=== PATIENT | male | born 1965 | race African-American/Black ===

== ENCOUNTER 2017-08-18 03:42 | Emergency (ER) | payer OTHER ==
[2017-08-18] MEDS ORDERED: SODIUM CHLORIDE 1,000 ML IV STA (04:06)
--- NOTE | 2017-08-18 04:06 | PDOC ---
History of Present Illness - General Stated Complaint: ABD PAIN,VOMITING Time Seen by Provider: 08/18/17 03:49 History Source: Patient Exam Limitations: No Limitations - History of Present Illness Travel History: No Initial Comments: 08/18/17 04:02 52-year-old male with no medical history presents to the emergency department complaining of epigastric abdominal pain. Pain is described as 5/10 sharp nonradiating intermittent discomfort and accompanied with chills and nausea. Patient denies any alleviating factors and is exacerbated on touch. Patient denies fever, headache, dizziness, lightheadedness, neck pains, back pains, chest pain, shortness of breath, urinary symptoms. Patient had 2 slices of pizza at ~1300hrs yesterday with a "Cup of noodle soup" Pain started at approximately 1800 hrs. last evening(x9h ago). Timing/Duration: reports: intermittent Quality: reports: moderate, sharpness Abdominal Pain Onset Location: reports: RUQ, epigastric Pain Radiation: reports: no radiation Past History - Past Medical History Allergies/Adverse Reactions: Allergies Allergy/AdvReac Type Severity Reaction Status Date / Time No Known Allergies Allergy Verified 08/18/17 04:02 Home Medications: Ambulatory Orders NK [No Known Home Medication] 08/18/17 Review of Systems - Review of Systems Able to Perform ROS?: Yes Comments:: 08/18/17 04:02 CONSTITUTIONAL: Absent: fever, chills, diaphoresis, generalized weakness, malaise, loss of appetite HEENT: Absent: rhinorrhea, nasal congestion, throat pain, throat swelling, difficulty swallowing, mouth swelling, ear pain, eye pain, visual Changes CARDIOVASCULAR: Absent: chest pain, loss of consciousness, palpitations, irregular heart rate, peripheral edema RESPIRATORY: Absent: cough, shortness of breath, dyspnea with exertion, orthopnea, wheezing, stridor, hemoptysis GASTROINTESTINAL: +Epigastric pain, +nausea Absent: abdominal distension, vomiting, diarrhea, constipation, melena, hematochezia GENITOURINARY: Absent: dysuria, frequency, urgency, hesitancy, hematuria, flank pain, genital pain MUSCULOSKELETAL: Absent: myalgia, arthralgia, joint swelling SKIN: Absent: rash, itching, pallor HEMATOLOGIC/IMMUNOLOGIC: Absent: easy bleeding, easy bruising, lymphadenopathy, frequent infections ENDOCRINE: Absent: unexplained weight gain, unexplained weight loss, heat intolerance, cold intolerance Is the patient limited Lithuanian proficient: No *Physical Exam - Physical Exam Comments: 08/18/17 04:02 GENERAL: Well developed, well nourished. Awake and alert. No acute distress. HEENT: Normocephalic, atraumatic. PERRLA, EOMI. No conjunctival pallor. Sclera are non- icteric. Moist mucous membranes. Oropharynx is clear. NECK: Supple. Full ROM. No JVD. Carotid pulses 2+ and symmetric, without bruits. No thyromegaly. No lymphadenopathy. CARDIOVASCULAR: Regular rate and rhythm. No murmurs, rubs, or gallops. Distal pulses are 2+ and symmetric. PULMONARY: No evidence of respiratory distress. Lungs clear to auscultation bilaterally. No wheezing, rales or rhonchi. ABDOMINAL: +RUQ pain on palp Soft. Non-distended. No rebound or guarding. No organomegaly. Normoactive bowel sounds. SKIN: Warm and dry. Normal capillary refill. No rashes. No jaundice. ED Treatment Course - LABORATORY CBC & Chemistry Diagram: 08/18/17 04:00 08/18/17 04:00 Progress Note - Progress Note Progress Note: Pt feels better after Maalox and pepcid 0627hrs: Pt feels better and wishes to be d/c *DC/Admit/Observation/Transfer Diagnosis at time of Disposition: Gastroenteritis - Discharge Dispostion Condition at time of disposition: Stable Admit: No - Referrals Referrals: Mark Moreno MD [Staff Physician] - - Patient Instructions Printed Discharge Instructions: DI for Viral Gastroenteritis -- Adult Additional Instructions: Avoid all the junk food/salty/cheesy food Increase fluid Follow up with the Charge Operator on the discharge form Return to the ER for severe/persistent/worsening symptoms - Post Discharge Activity
[2017-08-18 04:20] LABS: BASOPHIL 0.4 % (0-2.0); EOSINOPHIL 0.5 % (0-4.5); MCH 33.1 pg (25.7-33.7); MCHC 33.9 g/dl (32.0-35.9); MEAN CELL VOLUME 97.7 fl (80-96); MEAN PLT VOLUME 7.7 fl (7.5-11.1); NEUTROPHILS 84.7 % (42.8-82.8); PLATELET COUNT 277 K/MM3 (134-434); RDW 13.9 % (11.9-15.9); WHITE BLOOD COUNT 11.7 K/mm3 (4.0-10.0)
[2017-08-18] MEDS ORDERED: MAG HYDROX/AL HYDROX/SIMETH 355 ML ORAL.SUSP PO ONE (04:22)
[2017-08-18] MEDS ORDERED: FAMOTIDINE 20 MG/50 ML IVPB 20 MG/50 ML MG IVPB ONE ×2 (04:23→04:29)
[2017-08-18] MEDS ORDERED: LIDOCAINE VISCOUS 2% ORAL/TOP 20 ML UNIT-DOSE CUP MM ONE (04:24)
[2017-08-18] MEDS ORDERED: LIDOCAINE VISCOUS 2% ORAL/TOP 20 ML UNIT-DOSE CUP ONE (04:29)
[2017-08-18] MEDS ORDERED: MAG HYDROX/AL HYDROX/SIMETH 30 ML UNIT-DOSE CUP ONE (04:29)
[2017-08-18 04:42] VITALS: BP 114/83; PULSE 73; TEMP 97.5; BMI 27.3
[2017-08-18] MEDS ORDERED: ONDANSETRON 4 MG/2 ML VIAL ONE (04:42)
[2017-08-18 04:49] LABS: ALK PHOS 75 U/L (45-117); AMYLASE 102 U/L (25-115); ANION GAP 9 (8-16); BILIRUBIN,TOTAL 0.4 mg/dL (0.2-1.0); CALCIUM 9.2 mg/dL (8.5-10.1); CO2 29 mmol/L (21-32); CREATININE 1.2 mg/dL (0.7-1.3); GLUCOSE,RANDOM 144 mg/dL (74-106); SGOT/AST 15 U/L (15-37); SGPT/ALT 34 U/L (12-78); TOT PROT 8.2 g/dl (6.4-8.2)
[2017-08-18] MEDS ORDERED: ONDANSETRON 4 MG/2 ML VIAL IVPUSH ONE (04:54)
[2017-08-18] MEDS ORDERED: METOCLOPRAMIDE HCL INJECTION 10 MG/2 ML VIAL IVPUSH ONE (05:42)
[2017-08-18] MEDS ORDERED: METOCLOPRAMIDE HCL INJECTION 10 MG/2 ML VIAL ONE (06:05)
--- NOTE | 2017-08-18 15:04 | EKG ---
Test Reason : Blood Pressure : / mmHG Vent. Rate : 057 BPM Atrial Rate : 057 BPM P-R Int : 186 ms QRS Dur : 096 ms QT Int : 416 ms P-R-T Axes : 065 065 043 degrees QTc Int : 404 ms SINUS BRADYCARDIA WITH SINUS ARRHYTHMIA ATRIAL ABNORMALITY NONSPECIFIC T WAVE ABNORMALITY ABNORMAL ECG NO PREVIOUS ECGS AVAILABLE CLINICAL CORRELATION IS RECOMMENDED Confirmed by ELIE BARONE MD ([id number]) on 08/18/2017 3:03:37 PM Referred By: Confirmed By:ELIE BARONE MD
== END 2017-08-18 06:52 | disposition home or self-care (01) ==
LOC: JER 03:42
PROC: 3E0337Z Introduction of Electrolytic and Water Balance Substance into Peripheral Vein, Percutaneous Approach (ICD-10-PCS; principal; 2017-08-18)
PROC: 3E033GC Introduction of Other Therapeutic Substance into Peripheral Vein, Percutaneous Approach (ICD-10-PCS; 2017-08-18)
PROC: 3E033GC Introduction of Other Therapeutic Substance into Peripheral Vein, Percutaneous Approach (ICD-10-PCS; 2017-08-18)
PROC: 3E033GC Introduction of Other Therapeutic Substance into Peripheral Vein, Percutaneous Approach (ICD-10-PCS; 2017-08-18)
DX: K52.9 Noninfective gastroenteritis and colitis, unspecified (principal)
CPT/HCPCS: 36415; 80053; 82150; 83690; 85025; 93005; 93010; 99281-25

== ENCOUNTER 2018-03-02 21:13 | Emergency (ER) | payer OTHER ==
[2018-03-02 21:20] VITALS: BP 111/69; PULSE 73; TEMP 98.9; BMI 33.9
--- NOTE | 2018-03-02 21:51 | PDOC ---
History of Present Illness - General Chief Complaint: Injury Stated Complaint: FALL Time Seen by Provider: 03/02/18 21:42 History Source: Patient Exam Limitations: No Limitations - History of Present Illness Initial Comments: 03/02/18 21:47 52-year-old male without significant past medical history presents emergency Department with fifth digit pain of his left hand status post trip and fall. Patient states was walking out of his apartment 2 days ago when he tripped on some uneven pavement causing him to fall forward landing on his outstretched hand. He states he struck the distal tip of his finger first which subsequently pushed back into his hand. He reports over the past 2 days he has had increased pain and swelling. Patient denies any loss of sensation distal to the injury. Past History - Past Medical History Allergies/Adverse Reactions: Allergies Allergy/AdvReac Type Severity Reaction Status Date / Time No Known Allergies Allergy Verified 03/02/18 21:18 Home Medications: Ambulatory Orders NK [No Known Home Medication] 08/18/17 COPD: No - Suicide/Smoking/Psychosocial Hx Smoking History: Never smoked Have you smoked in the past 12 months: No Hx Alcohol Use: No Drug/Substance Use Hx: No Review of Systems - Review of Systems Able to Perform ROS?: Yes Is the patient limited Nauruan proficient: No Constitutional: No: Symptoms Reported HEENTM: No: Symptoms Reported Respiratory: No: Symptoms reported Cardiac (ROS): No: Symptoms Reported ABD/GI: No: Symptoms Reported : No: Symptoms Reported Musculoskeletal: Yes: See HPI Integumentary: No: Symptoms Reported Neurological: No: Symptoms reported *Physical Exam - Vital Signs Last Vital Signs Temp Pulse Resp BP Pulse Ox 98.9 F 73 18 111/69 98 03/02/18 21:19 03/02/18 21:19 03/02/18 21:19 03/02/18 21:19 03/02/18 21:19 - Physical Exam Extremity: positive: Normal Capillary Refill, Normal Range of Motion, Swelling ( Over PIP of the fifth digit on the left hand) ED Treatment Course - RADIOLOGY Radiology Studies Ordered: Category Date Time Status FINGER(S) LEFT [RAD] Stat Radiology 03/02/18 21:47 Ordered Medical Decision Making - Medical Decision Making 03/02/18 21:49 A/P: 52-year-old male with pain to the PIP on the fifth digit of the left hand status post trip and fall Swelling noted over the PIP of the fifth digit of the left hand Capillary refill is within normal limits Full sensation distal to swelling No bony deformity or crepitus noted X-ray fingers Discharge 03/02/18 22:31 X-rays read by me: Minimally displaced Transverse fracture of the proximal phalanx of the fifth digit on the left hand Nurse Practitioner made ulnar gutter splint applied. neurosensory intact status post application of splint. Patient given instructions to follow-up with Dr. Riley in one week for reevaluation. *DC/Admit/Observation/Transfer Diagnosis at time of Disposition: Proximal phalanx fracture of finger Qualifiers: Encounter type: initial encounter Finger: little finger Fracture type: closed Fracture alignment: nondisplaced Laterality: left Qualified Code(s): S62.647A - Nondisplaced fracture of proximal phalanx of left little finger, initial encounter for closed fracture - Discharge Dispostion Disposition: HOME Condition at time of disposition: Stable - Referrals Referrals: Cesar Villanueva MD [Primary Care Provider] - Jimbo Riley MD [Staff Physician] - - Patient Instructions Additional Instructions: Take Tylenol or Motrin as needed for pain. You've been given the number for Dr. Tao an orthopedic hand surgeon. Please call for evaluation in one week. Return to emergency department for numbness or tingling linear fingers, discoloration, worsening pain or any other concerns. Thank you very much for choosing provider emergent health care needs. - Post Discharge Activity
[2018-03-07] MEDS ORDERED: morphine CARPU-JECT 2 MG/1 ML DISP.SYRIN ONE (16:52)
== END 2018-03-02 22:41 | disposition home or self-care (01) ==
LOC: JERFT 21:13
PROC: 2W3DX1Z Immobilization of Left Lower Arm using Splint (ICD-10-PCS; principal; 2018-03-02)
DX: S62.647A Nondisplaced fracture of proximal phalanx of left little finger, initial encounter for closed fracture (principal); W01.0XXA Fall on same level from slipping, tripping and stumbling without subsequent striking against object, initial encounter; Y93.01 Activity, walking, marching and hiking; Y92.480 Sidewalk as the place of occurrence of the external cause; Y99.8 Other external cause status
CPT/HCPCS: 73140-TC-LT-FY; 99282-25

== ENCOUNTER 2019-10-05 18:26 | Emergency (ER) | payer OTHER ==
[2019-10-05 18:34] VITALS: BP 110/71; PULSE 65; TEMP 98; BMI 29.0
[2019-10-05] MEDS ORDERED: ACETAMINOPHEN 325 MG TABLET (FP) PO ONE (19:54)
--- NOTE | 2019-10-05 19:59 | PDOC ---
Attending Attestation - Resident Resident Name: Homero Jones - ED Attending Attestation I have performed the following: I have examined & evaluated the patient, The case was reviewed & discussed with the resident, I agree w/resident's findings & plan - HPI HPI: 10/05/19 19:56 see resident hpi - Physicial Exam PE: 10/05/19 19:56 agree with resident exam - Medical Decision Making 10/05/19 19:58 54-year-old male with syncopal episode and confusion now complaining of head and chin pain Plan for syncope work-up and admission to medical service for further evaluation CT scan, EKG and labs
--- NOTE | 2019-10-05 20:08 | PDOC ---
History of Present Illness - General Chief Complaint: Injury Stated Complaint: FALL Time Seen by Provider: 10/05/19 19:55 History Source: Patient, Significant Other - History of Present Illness Initial Comments: Mr. Beasley is a 54 y/o man with no relevant PMH p/w first time syncope 30 minutes prior to his arrival. He reports feeling normal throughout the day, and driving from from the grocery store. He reports parking in front of his house and stepping out of his car, when he woke up on the floor. He reports pain in the back of his head, as well as tasting blood on his tongue. He denies any seizure history, or history of prior syncopal episodes. He was found by his who called for EMS. He awoke approx 5 min later per the partner and was initially confused. He denies any confusion, weakness, vision changes, chest pain, shortness of breath, fatigue at this time. He reports having a PCP appointment tomorrow. Past History - Past Medical History Allergies/Adverse Reactions: Allergies Allergy/AdvReac Type Severity Reaction Status Date / Time No Known Allergies Allergy Verified 10/05/19 18:34 Home Medications: Ambulatory Orders NK [No Known Home Medication] 08/18/17 COPD: No - Psycho Social/Smoking Cessation Hx Smoking History: Former smoker Have you smoked in the past 12 months: No Information on smoking cessation initiated: No Hx Alcohol Use: No Drug/Substance Use Hx: No Review of Systems - Review of Systems Able to Perform ROS?: Yes Comments:: ROS: GENERAL/CONSTITUTIONAL: No fever or chills. No weakness. HEAD, EYES, EARS, NOSE AND THROAT: No change in vision. No ear pain or discharge. No sore throat. CARDIOVASCULAR: No chest pain or shortness of breath RESPIRATORY: No cough, wheezing, or hemoptysis. GASTROINTESTINAL: No nausea, vomiting, diarrhea or constipation. GENITOURINARY: No dysuria, frequency, or change in urination. MUSCULOSKELETAL: No joint or muscle swelling or pain. No neck or back pain. SKIN: No rash NEUROLOGIC: Syncope. No headache, vertigo, loss of consciousness, or change in strength/sensation. ENDOCRINE: No increased thirst. No abnormal weight change HEMATOLOGIC/LYMPHATIC: No anemia, easy bleeding, or history of blood clots. ALLERGIC/IMMUNOLOGIC: No hives or skin allergy. *Physical Exam - Vital Signs Last Vital Signs Temp Pulse Resp BP Pulse Ox 98 F 65 18 110/71 99 10/05/19 18:28 10/05/19 18:28 10/05/19 18:28 10/05/19 18:28 10/05/19 18:28 - Physical Exam 10/07/19 13:46 PE: GENERAL: Awake, alert, and fully oriented, in no acute distress HEAD: Small abrasion to back of scalp. No other signs of trauma, normocephalic, atraumatic EYES: PERRLA, EOMI, sclera anicteric, conjunctiva clear ENT: Auricles normal inspection, hearing grossly normal, nares patent, oropharynx clear without exudates. Moist mucosa NECK: Normal ROM, supple, no lymphadenopathy, JVD, or masses LUNGS: No distress, speaks full sentences, clear to auscultation bilaterally HEART: Regular rate and rhythm, normal S1 and S2, no murmurs, rubs or gallops, peripheral pulses normal and equal bilaterally. ABDOMEN: Soft, nontender, normoactive bowel sounds. No guarding, no rebound. No masses EXTREMITIES : Normal inspection, Normal range of motion, no edema. No clubbing or cyanosis NEUROLOGICAL: Cranial nerves II through XII grossly intact. Normal speech, normal gait, no focal sensorimotor deficits SKIN: Warm, Dry, normal turgor, no rashes or lesions noted Medical Decision Making - Medical Decision Making 54M w/no PMH p/w unwitnessed syncope while stepping out of his car with brief period of confusion on awakening, most consistent with first time seizure. Differential includes malignancy causing mass effect or seizure focus, ICH. Other differential includes ACS, metabolic derangement. Plan: CBC CMP Cardiac Profile EKG CXR CT Head CT cervical spine CT maxillofacial structures PT/INR PTT UA Urine culture Dispo: Admit --- Mr. Beasley refusing bloodwork, ekg, and admission, he would rather follow up with his physician tomorrow. Discussed our concerns and risks of not doing further workup. He is fully alert and oriented, is not intoxicated, and able to repeat back an understanding of our concerns and the risks. He will wait for the CT results. Plan for AMA pending radiology read of head CT. --- CTs negative for acute process. 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 Plan for AMA. Discharge - Discharge Information Problems reviewed: Yes Clinical Impression/Diagnosis: Syncope Qualifiers: Syncope type: unspecified Qualified Code(s): R55 - Syncope and collapse Condition: Guarded Disposition: AGAINST MEDICAL ADVICE - Admission No - Follow up/Referral Referrals: Cesar Villanueva MD [Primary Care Provider] - - Patient Discharge Instructions Patient Printed Discharge Instructions: DI for Syncope in Adults (Fainting) Additional Instructions: You were seen in the ER after fainting. We are recommending bloodwork and inpatient observation, as discussed. Please return to the ER if you change your mind and would like further evaluation. Please return if you develop worsening headache, repeat fainting, weakness, nausea, vomiting, chest pain, high fevers, trouble breathing. Please see your primary care provider as soon as possible, in the next 1-2 days. - Post Discharge Activity Work/Back to School Note: Back to Work
[2019-10-05] MEDS ORDERED: ACETAMINOPHEN 325 MG TABLET (FP) ONE (20:16)
== END 2019-10-05 21:40 | disposition left against medical advice (07) ==
LOC: JER 18:26
DX: R55 Syncope and collapse (principal); W18.39XA Other fall on same level, initial encounter; Y93.89 Activity, other specified; Y92.89 Other specified places as the place of occurrence of the external cause; Y99.8 Other external cause status
CPT/HCPCS: 70450-TC; 70486-TC; 72125-TC; 99283-25

== ENCOUNTER 2020-09-24 08:40 | Emergency (ER) | payer SELFPAY ==
[2020-09-24 08:47] VITALS: BMI 25.8
[2020-09-24] MEDS ORDERED: ONDANSETRON 4 MG/2 ML VIAL IVPUSH ONE ×2 (09:19→10:44)
[2020-09-24] MEDS ORDERED: ACETAMINOPHEN 1000 MG/100 ML VIAL (NON FORMULARY) IVPB ONE (09:19)
[2020-09-24] MEDS ORDERED: SODIUM CHLORIDE 1,000 ML IV STA ×2 (09:19→11:23)
[2020-09-24] MEDS ORDERED: FAMOTIDINE 20 MG/50 ML IVPB 20 MG/50 ML MG IVPB ONE ×2 (09:19→09:26)
[2020-09-24] MEDS ORDERED: ONDANSETRON 4 MG/2 ML VIAL ONE ×2 (09:26→10:50)
[2020-09-24] MEDS ORDERED: ACETAMINOPHEN INJECTION 100 ML IVPB ONE (09:26)
[2020-09-24] MEDS ORDERED: METOCLOPRAMIDE HCL INJECTION 10 MG/2 ML VIAL IVPB ONE (11:23)
[2020-09-24 11:26] VITALS: BP 155/81; PULSE 52; TEMP 20
[2020-09-24] MEDS ORDERED: METOCLOPRAMIDE HCL INJECTION 10 MG/2 ML VIAL ONE (11:44)
== END 2020-09-24 13:15 | disposition home or self-care (01) ==
LOC: JER 08:40
PROC: 3E033NZ Introduction of Analgesics, Hypnotics, Sedatives into Peripheral Vein, Percutaneous Approach (ICD-10-PCS; principal; 2020-09-24)
PROC: 3E033GC Introduction of Other Therapeutic Substance into Peripheral Vein, Percutaneous Approach (ICD-10-PCS; 2020-09-24)
PROC: 3E0337Z Introduction of Electrolytic and Water Balance Substance into Peripheral Vein, Percutaneous Approach (ICD-10-PCS; 2020-09-24)
DX: R10.13 Epigastric pain (principal); R11.2 Nausea with vomiting, unspecified
CPT/HCPCS: 99285-25; C9803; J0131; U0003

== ENCOUNTER 2020-09-26 10:47 | Emergency (ER) | payer SELFPAY ==
[2020-09-26 10:59] VITALS: TEMP 98; BMI 25.8
[2020-09-26] MEDS ORDERED: LACTATED RINGERS SOLUTION 1000 ML INFUS.BAG IV ONE (12:43)
[2020-09-26] MEDS ORDERED: ONDANSETRON 4 MG/2 ML VIAL IVPUSH ONE (12:44)
[2020-09-26] MEDS ORDERED: FAMOTIDINE 20 MG/50 ML IVPB 20 MG/50 ML MG IVPB ONE ×2 (12:44→13:08)
[2020-09-26] MEDS ORDERED: MAG HYDROX/AL HYDROX/SIMETH 30 ML UNIT-DOSE CUP PO ONE (13:04)
[2020-09-26] MEDS ORDERED: MAG HYDROX/AL HYDROX/SIMETH 30 ML UNIT-DOSE CUP ONE (13:08)
[2020-09-26] MEDS ORDERED: ONDANSETRON 4 MG/2 ML VIAL ONE (13:08)
[2020-09-26 13:50] LABS: CHLORIDE 106 mmol/L (98-107); SODIUM 140 mmol/L (136-145)
[2020-09-26 13:53] LABS: ALBUMIN 3.8 g/dl (3.4-5.0); ANION GAP 6 MMOL/L (8-16); BLOOD UREA NITROGEN 16.5 mg/dL (7-18); CO2 28 mmol/L (21-32); GLUCOSE,RANDOM 97 mg/dL (74-106)
[2020-09-26 13:53] LABS: COCAINE, UR NEGATIVE ng/ml (CUTOFF=300); URINE BARBITURATES NEGATIVE ng/ml (CUTOFF=200)
[2020-09-26 13:54] LABS: LIPASE 153 U/L (73-393)
[2020-09-26 13:56] LABS: CREATININE 1.1 mg/dL (0.55-1.3); SGOT/AST 64 U/L (15-37); SGPT/ALT 65 U/L (13-61)
[2020-09-26 13:57] LABS: METHADONE, UR NEGATIVE ng/ml (CUTOFF=300); OPIATES, URI NEGATIVE ng/ml (CUTOFF=300); PHENCYCLIDINE,URINE NEGATIVE ng/ml (CUTOFF=25); URINE AMPHETAMINES NEGATIVE ng/ml (CUTOFF=500); URINE BENZODIAZEPINES NEGATIVE ng/ml (CUTOFF=200)
[2020-09-26 13:58] LABS: BILIRUBIN,TOTAL 0.7 mg/dL (0.2-1); TOT PROT 7.5 g/dl (6.4-8.2)
[2020-09-26 13:59] LABS: ALK PHOS 47 U/L (45-117)
[2020-09-26] MEDS ORDERED: METOCLOPRAMIDE HCL INJECTION 10 MG/2 ML VIAL IVPB ONE (14:23)
[2020-09-26] MEDS ORDERED: METOCLOPRAMIDE HCL INJECTION 10 MG/2 ML VIAL ONE (14:29)
[2020-09-26 14:40] LABS: BASO % 1.2 % (0-2.0); EOS % 0.1 % (0-4.5); HEMATOCRIT 40.2 % (35.4-49); HEMOGLOBIN 13.1 GM/dL (11.7-16.9); LYMPH % 22.4 % (8-40); MCH 32.7 pg (25.7-33.7); MCHC 32.7 g/dl (32.0-35.9); MEAN CELL VOLUME 100.1 fl (80-96); MEAN PLT VOLUME 9.2 fl (7.5-11.1); NEUT % 68.3 % (42.8-82.8); PLATELET COUNT 180 K/MM3 (134-434); RBC 4.02 M/mm3 (4.00-5.60); RDW 14.2 % (11.9-15.9); WHITE BLOOD COUNT 9.3 K/mm3 (4.0-10.0)
[2020-09-26 16:14] VITALS: BP 110/68; PULSE 70
== END 2020-09-26 16:14 | disposition home or self-care (01) ==
LOC: JER 10:47
PROC: 3E033GC Introduction of Other Therapeutic Substance into Peripheral Vein, Percutaneous Approach (ICD-10-PCS; principal; 2020-09-26)
PROC: 3E033GC Introduction of Other Therapeutic Substance into Peripheral Vein, Percutaneous Approach (ICD-10-PCS; 2020-09-26)
PROC: 3E033GC Introduction of Other Therapeutic Substance into Peripheral Vein, Percutaneous Approach (ICD-10-PCS; 2020-09-26)
DX: R10.13 Epigastric pain (principal); R06.02 Shortness of breath; F50.2 Bulimia nervosa
CPT/HCPCS: 36415; 71045-TC-FY; 76705-TC; 80053; 80307; 82550; 82553; 83690; 84484; 85025; 93005; 93010; 99285-25

== ENCOUNTER 2021-04-04 09:59 | Emergency (ER) | payer OTHER ==
[2021-04-04 10:08] VITALS: BMI 26.6
[2021-04-04] MEDS ORDERED: ONDANSETRON 4 MG/2 ML VIAL IVPUSH ONE ×2 (11:24→13:16)
[2021-04-04] MEDS ORDERED: ONDANSETRON 4 MG/2 ML VIAL ONE ×2 (11:30→13:17)
[2021-04-04] MEDS ORDERED: FAMOTIDINE 20 MG/50 ML IVPB 20 MG/50 ML MG IVPB ONE ×2 (11:33→12:28)
[2021-04-04] MEDS ORDERED: ACETAMINOPHEN 1000 MG/100 ML VIAL (NON FORMULARY) IVPB ONE (11:33)
[2021-04-04] MEDS ORDERED: ACETAMINOPHEN INJECTION 100 ML IVPB ONE (11:35)
[2021-04-04] MEDS ORDERED: LACTATED RINGERS SOLUTION 1000 ML INFUS.BAG IV ONE (12:10)
[2021-04-04 12:18] LABS: BASO % 0.3 % (0-2.0); EOS % 0.2 % (0-4.5); HEMATOCRIT 43.2 % (35.4-49); HEMOGLOBIN 14.5 GM/dL (11.7-16.9); LYMPH % 11.1 % (8-40); MCH 33.2 pg (25.7-33.7); MCHC 33.6 g/dl (32.0-35.9); MEAN PLT VOLUME 9.2 fl (7.5-11.1); MONO % 2.7 % (3.8-10.2); NEUT % 85.7 % (42.8-82.8); PLATELET COUNT 202 10^3/uL (134-434); RBC 4.36 M/mm3 (4.00-5.60); RDW 14.7 % (11.9-15.9); WHITE BLOOD COUNT 10.2 K/mm3 (4.0-10.0)
[2021-04-04 12:27] LABS: INR 0.9 (0.83-1.09); PROTHROMBIN TIME (PATIENT) 10.9 SEC (9.7-13.0)
[2021-04-04 12:29] LABS: ACTIVATED PTT 27.6 SECONDS (25.2-36.5)
[2021-04-04 12:36] LABS: CHLORIDE 108 mmol/L (98-107); SODIUM 143 mmol/L (136-145)
[2021-04-04 12:40] LABS: ALBUMIN 4.2 g/dl (3.4-5.0); ANION GAP 7 MMOL/L (8-16); CALCIUM 9.6 mg/dL (8.5-10.1); CO2 27 mmol/L (21-32); LIPASE 172 U/L (73-393)
[2021-04-04 12:41] LABS: GLUCOSE,RANDOM 146 mg/dL (74-106)
[2021-04-04] MEDS ORDERED: MAG HYDROX/AL HYDROX/SIMETH 30 ML UNIT-DOSE CUP PO ONE (12:41)
[2021-04-04] MEDS ORDERED: MAG HYDROX/AL HYDROX/SIMETH 30 ML UNIT-DOSE CUP ONE (12:42)
[2021-04-04 12:43] LABS: CREATININE 1.2 mg/dL (0.55-1.3); SGOT/AST 24 U/L (15-37); SGPT/ALT 36 U/L (13-61)
[2021-04-04 12:45] LABS: BILIRUBIN,TOTAL 0.4 mg/dL (0.2-1); TOT PROT 7.8 g/dl (6.4-8.2)
[2021-04-04 12:46] LABS: ALK PHOS 63 U/L (45-117)
[2021-04-04] MEDS ORDERED: METOCLOPRAMIDE HCL INJECTION 10 MG/2 ML VIAL IVPUSH ONE (16:02)
[2021-04-04] MEDS ORDERED: SODIUM CHLORIDE 0.9% 500 ML INFUS.BAG IV ONE (16:02)
[2021-04-04] MEDS ORDERED: PANTOPRAZOLE SODIUM 40 MG VIAL IVPUSH ONE (16:03)
[2021-04-04] MEDS ORDERED: METOCLOPRAMIDE HCL INJECTION 10 MG/2 ML VIAL ONE (16:44)
[2021-04-04] MEDS ORDERED: PANTOPRAZOLE SODIUM 40 MG VIAL ONE (16:44)
[2021-04-04 19:04] VITALS: TEMP 98.4
[2021-04-11 16:55] VITALS: BP 138/80; PULSE 80
== END 2021-04-04 19:05 | disposition home or self-care (01) ==
LOC: JER 09:59
PROC: 3E0333Z Introduction of Anti-inflammatory into Peripheral Vein, Percutaneous Approach (ICD-10-PCS; principal; 2021-04-04)
PROC: 3E033GC Introduction of Other Therapeutic Substance into Peripheral Vein, Percutaneous Approach (ICD-10-PCS; 2021-04-04)
PROC: 3E033GC Introduction of Other Therapeutic Substance into Peripheral Vein, Percutaneous Approach (ICD-10-PCS; 2021-04-04)
PROC: 3E033GC Introduction of Other Therapeutic Substance into Peripheral Vein, Percutaneous Approach (ICD-10-PCS; 2021-04-04)
PROC: 3E033GC Introduction of Other Therapeutic Substance into Peripheral Vein, Percutaneous Approach (ICD-10-PCS; 2021-04-04)
PROC: 3E033GC Introduction of Other Therapeutic Substance into Peripheral Vein, Percutaneous Approach (ICD-10-PCS; 2021-04-04)
DX: R11.2 Nausea with vomiting, unspecified (principal)
CPT/HCPCS: 36415; 71046-TC-FY; 74177-TC; 80053; 83690; 84484; 85025; 85610; 85730; 93005; 93010; 99285-25; J0131; Q9967

== ENCOUNTER 2021-06-08 08:48 | Emergency (ER) | payer OTHER ==
[2021-06-08 09:00] VITALS: BMI 26.6
[2021-06-08] MEDS ORDERED: ONDANSETRON 4 MG/2 ML VIAL IVPUSH ONE (09:26)
[2021-06-08] MEDS ORDERED: SODIUM CHLORIDE 1,000 ML IV STA ×3 (09:26→11:01)
[2021-06-08] MEDS ORDERED: FAMOTIDINE 20 MG/50 ML IVPB 20 MG/50 ML MG IVPB ONE ×2 (09:26→09:55)
[2021-06-08] MEDS ORDERED: ONDANSETRON 4 MG/2 ML VIAL ONE (09:40)
[2021-06-08 10:09] LABS: BASO % 0.2 % (0-2.0); EOS % 0.5 % (0-4.5); HEMOGLOBIN 14.6 GM/dL (11.7-16.9); LYMPH % 12.5 % (8-40); MCH 34.2 pg (25.7-33.7); MCHC 34.7 g/dl (32.0-35.9); MEAN CELL VOLUME 98.7 fl (80-96); MONO % 3.1 % (3.8-10.2); NEUT % 83.7 % (42.8-82.8); PLATELET COUNT 201 10^3/uL (134-434); RBC 4.26 M/mm3 (4.00-5.60); RDW 14.7 % (11.9-15.9); WHITE BLOOD COUNT 9.8 K/mm3 (4.0-10.0)
[2021-06-08 10:35] LABS: ALBUMIN 3.8 g/dl (3.4-5.0); BLOOD UREA NITROGEN 17.9 mg/dL (7-18); MAGNESIUM 2.3 mg/dL (1.8-2.4)
[2021-06-08 10:38] LABS: CREATININE 1.4 mg/dL (0.55-1.3)
[2021-06-08 10:39] LABS: CALCIUM 9.4 mg/dL (8.5-10.1)
[2021-06-08 10:40] LABS: BILIRUBIN,TOTAL 0.4 mg/dL (0.2-1)
[2021-06-08 10:41] LABS: TOT PROT 7.3 g/dl (6.4-8.2)
[2021-06-08] MEDS ORDERED: METOCLOPRAMIDE HCL INJECTION 10 MG/2 ML VIAL ONE (10:59)
[2021-06-08] MEDS ORDERED: METOCLOPRAMIDE HCL INJECTION 10 MG/2 ML VIAL IVPB ONE (11:01)
[2021-06-08] MEDS ORDERED: ACETAMINOPHEN 1000 MG/100 ML VIAL (NON FORMULARY) IVPB ONE (11:02)
[2021-06-08] MEDS ORDERED: PANTOPRAZOLE SODIUM 40 MG VIAL IVPUSH ONE (11:02)
[2021-06-08] MEDS ORDERED: MAG HYDROX/AL HYDROX/SIMETH 30 ML UNIT-DOSE CUP PO ONE (11:02)
[2021-06-08] MEDS ORDERED: ACETAMINOPHEN INJECTION 100 ML IVPB ONE (11:38)
[2021-06-08] MEDS ORDERED: MAG HYDROX/AL HYDROX/SIMETH 30 ML UNIT-DOSE CUP ONE (11:38)
[2021-06-08] MEDS ORDERED: PANTOPRAZOLE SODIUM 40 MG VIAL ONE (11:39)
[2021-06-08] MEDS ORDERED: HALOPERIDOL LACTATE 5 MG/ML IV ONE (13:13)
[2021-06-08] MEDS ORDERED: ASPIRIN 325 MG ENTERIC COATED TABLET (FP) ONE (13:36)
[2021-06-08] MEDS ORDERED: HALOPERIDOL LACTATE 5 MG/ML ONE (13:55)
[2021-06-08 14:35] VITALS: BP 138/88; PULSE 60; TEMP 98
== END 2021-06-08 15:56 | disposition home or self-care (01) ==
LOC: JER 08:48
PROC: 3E0333Z Introduction of Anti-inflammatory into Peripheral Vein, Percutaneous Approach (ICD-10-PCS; principal; 2021-06-08)
PROC: 3E033GC Introduction of Other Therapeutic Substance into Peripheral Vein, Percutaneous Approach (ICD-10-PCS; 2021-06-08)
PROC: 3E033GC Introduction of Other Therapeutic Substance into Peripheral Vein, Percutaneous Approach (ICD-10-PCS; 2021-06-08)
PROC: 3E033GC Introduction of Other Therapeutic Substance into Peripheral Vein, Percutaneous Approach (ICD-10-PCS; 2021-06-08)
PROC: 3E033GC Introduction of Other Therapeutic Substance into Peripheral Vein, Percutaneous Approach (ICD-10-PCS; 2021-06-08)
PROC: 3E0337Z Introduction of Electrolytic and Water Balance Substance into Peripheral Vein, Percutaneous Approach (ICD-10-PCS; 2021-06-08)
PROC: 3E0337Z Introduction of Electrolytic and Water Balance Substance into Peripheral Vein, Percutaneous Approach (ICD-10-PCS; 2021-06-08)
DX: R11.10 Vomiting, unspecified (principal); R10.13 Epigastric pain; R19.7 Diarrhea, unspecified
CPT/HCPCS: 36415; 80053; 83690; 83735; 85025; 93005; 93010; 99284-25; J0131

== ENCOUNTER 2022-05-30 08:32 | Emergency (ER) | payer OTHER ==
[2022-05-30 08:37] VITALS: BP 132/87; RESP 18; TEMP 98.1; BMI 26.6
[2022-05-30] MEDS ORDERED: SODIUM CHLORIDE 1,000 ML IV ONE (08:54)
[2022-05-30] MEDS ORDERED: METOCLOPRAMIDE HCL INJECTION 10 MG/2 ML VIAL IVPB ONE (08:54)
[2022-05-30] MEDS ORDERED: ACETAMINOPHEN 1000 MG/100 ML BAG IVPB ONE (08:54)
[2022-05-30] MEDS ORDERED: METOCLOPRAMIDE HCL INJECTION 10 MG/2 ML VIAL ONE (09:01)
[2022-05-30] MEDS ORDERED: ACETAMINOPHEN INJECTION 100 ML IVPB ONE (09:02)
[2022-05-30 09:41] LABS: BASO % 0.9 % (0-2.0); EOS % 0.9 % (0-4.5); HEMATOCRIT 41.9 % (35.4-49); HEMOGLOBIN 14.1 GM/dL (11.7-16.9); LYMPH % 11.7 % (8-40); MCH 33.3 pg (25.7-33.7); MCHC 33.5 g/dl (32.0-35.9); MEAN CELL VOLUME 99.4 fl (80-96); MEAN PLT VOLUME 9.3 fl (7.5-11.1); MONO % 4.9 % (3.8-10.2); NEUT % 81.6 % (42.8-82.8); PLATELET COUNT 198 10^3/uL (134-434); RBC 4.22 M/mm3 (4.00-5.60); RDW 14.6 % (11.9-15.9); WHITE BLOOD COUNT 12.1 K/mm3 (4.0-10.0)
[2022-05-30 10:09] LABS: BLOOD UREA NITROGEN 15.4 mg/dL (7-18); CALCIUM 9.6 mg/dL (8.5-10.1); MAGNESIUM 2.4 mg/dL (1.8-2.4)
[2022-05-30 10:13] LABS: TOT PROT 7.2 g/dl (6.4-8.2)
[2022-05-30 10:14] LABS: BILIRUBIN,TOTAL 0.4 mg/dL (0.2-1)
[2022-05-30] MEDS ORDERED: MAG HYDROX/AL HYDROX/SIMETH 30 ML UNIT-DOSE CUP PO ONE (10:37)
[2022-05-30] MEDS ORDERED: ONDANSETRON 4 MG/2 ML VIAL IVPUSH ONE (10:37)
[2022-05-30] MEDS ORDERED: FAMOTIDINE 20 MG/50 ML IVPB 20 MG/50 ML MG IVPB ONE ×2 (10:37→10:41)
[2022-05-30] MEDS ORDERED: ONDANSETRON 4 MG/2 ML VIAL ONE (10:41)
[2022-05-30] MEDS ORDERED: MAG HYDROX/AL HYDROX/SIMETH 30 ML UNIT-DOSE CUP ONE (10:41)
[2022-05-30] MEDS ORDERED: HALOPERIDOL LACTATE 5 MG/ML IM ONE (12:01)
[2022-05-30] MEDS ORDERED: HALOPERIDOL LACTATE 5 MG/ML ONE (12:05)
[2022-05-30 14:02] VITALS: PULSE 70
== END 2022-05-30 14:02 ==
LOC: JER 08:32
PROC: 3E0333Z Introduction of Anti-inflammatory into Peripheral Vein, Percutaneous Approach (ICD-10-PCS; principal; 2022-05-30)
PROC: 3E033GC Introduction of Other Therapeutic Substance into Peripheral Vein, Percutaneous Approach (ICD-10-PCS; 2022-05-30)
PROC: 3E033GC Introduction of Other Therapeutic Substance into Peripheral Vein, Percutaneous Approach (ICD-10-PCS; 2022-05-30)
PROC: 3E033GC Introduction of Other Therapeutic Substance into Peripheral Vein, Percutaneous Approach (ICD-10-PCS; 2022-05-30)
PROC: 3E0337Z Introduction of Electrolytic and Water Balance Substance into Peripheral Vein, Percutaneous Approach (ICD-10-PCS; 2022-05-30)
PROC: 3E023GC Introduction of Other Therapeutic Substance into Muscle, Percutaneous Approach (ICD-10-PCS; 2022-05-30)
DX: F12.188 Cannabis abuse with other cannabis-induced disorder (principal); R10.13 Epigastric pain
CPT/HCPCS: 36415; 80053; 83690; 83735; 85025; 93005; 93010; 99284-25

== ENCOUNTER 2022-06-03 21:29 | Inpatient (IN) | payer OTHER ==
[2022-06-03 21:51] VITALS: BMI 26.6
[2022-06-04] MEDS ORDERED: morphine CARPU-JECT 4 MG/1 ML DISP.SYRIN IVPUSH ONE (03:13)
[2022-06-04] MEDS ORDERED: morphine SULFATE 4 MG/ML VIAL ONE (03:20)
[2022-06-04] MEDS ORDERED: ONDANSETRON 4 MG/2 ML VIAL ONE (03:52)
[2022-06-04] MEDS ORDERED: MIDAZOLAM HCL 2 MG/2 ML SINGLE DOSE VIAL ONE (03:53)
[2022-06-04] MEDS ORDERED: SUCCINYLCHOLINE CHLORIDE 200 MG/10 ML SYRINGE ONE (03:53)
[2022-06-04] MEDS ORDERED: PROPOFOL 40 ML ONE (03:53)
[2022-06-04 03:57] LABS: BASO % 0.7 % (0-2.0); EOS % 2.4 % (0-4.5); HEMATOCRIT 38.4 % (35.4-49); LYMPH % 22.7 % (8-40); MCH 34.2 pg (25.7-33.7); MCHC 33.9 g/dl (32.0-35.9); MEAN PLT VOLUME 8.9 fl (7.5-11.1); MONO % 10.1 % (3.8-10.2); NEUT % 64.1 % (42.8-82.8); PLATELET COUNT 202 10^3/uL (134-434); RDW 14.6 % (11.9-15.9); WHITE BLOOD COUNT 8.9 K/mm3 (4.0-10.0)
[2022-06-04 04:10] LABS: ALBUMIN 3.8 g/dl (3.4-5.0); BLOOD UREA NITROGEN 17.8 mg/dL (7-18); CALCIUM 8.7 mg/dL (8.5-10.1)
[2022-06-04 04:12] LABS: CREATININE 1.2 mg/dL (0.55-1.3)
[2022-06-04 04:15] LABS: BILIRUBIN,TOTAL 0.5 mg/dL (0.2-1); TOT PROT 7.3 g/dl (6.4-8.2)
[2022-06-04 04:23] LABS: INR 0.93 (0.83-1.09); PROTHROMBIN TIME (PATIENT) 10.7 SEC (9.7-13.0)
[2022-06-04] MEDS ORDERED: LIDOCAINE HCL 2% (20ML MULTI-DOSE VIAL) ONE (04:26)
[2022-06-04] MEDS ORDERED: ceFAZolin SODIUM 1 GM VIAL IVPB ONE (04:58)
[2022-06-04] MEDS ORDERED: PROPOFOL 20 ML ONE (05:51)
[2022-06-04] MEDS ORDERED: ONDANSETRON 4 MG/2 ML VIAL IVPUSH PRN (06:13)
[2022-06-04] MEDS ORDERED: ACETAMINOPHEN 1000 MG/100 ML BAG IVPB ONE ×4 (06:15→23:50)
[2022-06-04] MEDS ORDERED: LACTATED RINGERS SOLUTION 1,000 ML IV SCH (06:15)
[2022-06-04] MEDS ORDERED: oxyCODONE HCL 5 MG TABLET PO PRN (06:21)
[2022-06-04] MEDS ORDERED: ACETAMINOPHEN INJECTION 100 ML IVPB ONE (06:46)
[2022-06-04] MEDS: oxyCODONE HCL 5 MG TABLET PO PRN ×2 (11:20→21:05)
[2022-06-04] MEDS: CEFAZOLIN 1 GM in DEXTROSE 5%-WATER 100 ML IVPB SCH ×2 (15:07→22:21)
[2022-06-04] MEDS: DEXTROSE 5%-0.45% SALINE 1,000 ML IV SCH (21:04)
[2022-06-04 21:30] LABS: BASO % 0.1 % (0-2.0); EOS % 1.6 % (0-4.5); HEMOGLOBIN 12.6 GM/dL (11.7-16.9); MCH 34.2 pg (25.7-33.7); MCHC 34.1 g/dl (32.0-35.9); MEAN CELL VOLUME 100.3 fl (80-96); MEAN PLT VOLUME 8.2 fl (7.5-11.1); MONO % 7.4 % (3.8-10.2); NEUT % 76.9 % (42.8-82.8); PLATELET COUNT 191 10^3/uL (134-434); RBC 3.69 M/mm3 (4.00-5.60); RDW 14.5 % (11.9-15.9); WHITE BLOOD COUNT 8.4 K/mm3 (4.0-10.0)
[2022-06-04 21:51] LABS: ALBUMIN 3.3 g/dl (3.4-5.0)
[2022-06-04 21:57] LABS: BILIRUBIN,TOTAL 0.8 mg/dL (0.2-1); TOT PROT 6.2 g/dl (6.4-8.2)
[2022-06-04] MEDS: HEPARIN NA (PORCINE) 5,000 UNITS/ML 1ML VIAL SQ SCH (22:17)
[2022-06-05] MEDS: oxyCODONE HCL 5 MG TABLET PO PRN ×4 (03:24→21:46)
[2022-06-05] MEDS: CEFAZOLIN 1 GM in DEXTROSE 5%-WATER 100 ML IVPB SCH ×3 (05:52→21:44)
[2022-06-05] MEDS: HEPARIN NA (PORCINE) 5,000 UNITS/ML 1ML VIAL SQ SCH ×2 (09:19→21:15)
[2022-06-05 11:02] LABS: BASO % 0.4 % (0-2.0); EOS % 1.2 % (0-4.5); HEMATOCRIT 37.7 % (35.4-49); HEMOGLOBIN 12.5 GM/dL (11.7-16.9); LYMPH % 10.6 % (8-40); MCH 33.2 pg (25.7-33.7); MCHC 33.1 g/dl (32.0-35.9); MEAN CELL VOLUME 100.2 fl (80-96); MEAN PLT VOLUME 9.9 fl (7.5-11.1); MONO % 12.5 % (3.8-10.2); NEUT % 75.3 % (42.8-82.8); PLATELET COUNT 163 10^3/uL (134-434); RBC 3.76 M/mm3 (4.00-5.60); RDW 14.5 % (11.9-15.9); WHITE BLOOD COUNT 8.6 K/mm3 (4.0-10.0)
[2022-06-05 11:28] LABS: CALCIUM 8.9 mg/dL (8.5-10.1)
[2022-06-05 11:30] LABS: ALBUMIN 3.3 g/dl (3.4-5.0); BLOOD UREA NITROGEN 8.6 mg/dL (7-18)
[2022-06-05 11:34] LABS: BILIRUBIN,TOTAL 0.8 mg/dL (0.2-1); TOT PROT 6.5 g/dl (6.4-8.2)
[2022-06-05] MEDS: DEXTROSE 5%-0.45% SALINE 1,000 ML IV SCH ×2 (14:02→19:51)
[2022-06-06] MEDS: DEXTROSE 5%-0.45% SALINE 1,000 ML IV SCH (04:41)
[2022-06-06] MEDS: CEFAZOLIN 1 GM in DEXTROSE 5%-WATER 100 ML IVPB SCH ×2 (06:05→15:07)
[2022-06-06] MEDS: HEPARIN NA (PORCINE) 5,000 UNITS/ML 1ML VIAL SQ SCH (11:09)
[2022-06-06] MEDS: POLYETHYLENE GLYCOL (HEALTHYLAX) 3350 17 GM PACKET PO SCH ×3 (11:38→18:22)
[2022-06-06] MEDS ORDERED: DOCUSATE SODIUM 100 MG CAPSULE (FP) PO PRN (18:47)
[2022-06-06] MEDS: oxyCODONE HCL 5 MG TABLET PO PRN (20:41)
[2022-06-06] MEDS ORDERED: ACETAMINOPHEN 325 MG TABLET (FP) PO PRN (21:26)
[2022-06-07] MEDS: CEFAZOLIN 1 GM in DEXTROSE 5%-WATER 100 ML IVPB SCH ×4 (00:06→22:00)
[2022-06-07] MEDS ORDERED: ONDANSETRON 4 MG/2 ML VIAL IVPUSH PRN ×2 (08:46→10:47)
[2022-06-07] MEDS ORDERED: PROPOFOL 40 ML ONE (09:34)
[2022-06-07] MEDS ORDERED: SUCCINYLCHOLINE CHLORIDE 200 MG/10 ML SYRINGE ONE (09:35)
[2022-06-07] MEDS ORDERED: MIDAZOLAM HCL 2 MG/2 ML SINGLE DOSE VIAL ONE (09:35)
[2022-06-07] MEDS ORDERED: ROCURONIUM BROMIDE 50 MG/5 ML SYRINGE ONE (09:52)
[2022-06-07] MEDS ORDERED: ceFAZolin SODIUM 1 GM VIAL IVPB ONE (10:00)
[2022-06-07] MEDS: POLYETHYLENE GLYCOL (HEALTHYLAX) 3350 17 GM PACKET PO SCH (10:09)
[2022-06-07] MEDS ORDERED: ACETAMINOPHEN 325 MG TABLET (FP) PO PRN (10:47)
[2022-06-07] MEDS ORDERED: DOCUSATE SODIUM 100 MG CAPSULE (FP) PO PRN (10:47)
[2022-06-07] MEDS: oxyCODONE HCL 5 MG TABLET PO PRN ×2 (13:16→22:01)
[2022-06-07 21:37] VITALS: RESP 20
[2022-06-08] MEDS: HEPARIN NA (PORCINE) 5,000 UNITS/ML 1ML VIAL SQ SCH ×2 (00:35→09:23)
[2022-06-08] MEDS: CEFAZOLIN 1 GM in DEXTROSE 5%-WATER 100 ML IVPB SCH (05:46)
[2022-06-08] MEDS ORDERED: POLYETHYLENE GLYCOL (HEALTHYLAX) 3350 17 GM PACKET PO SCH (10:00)
[2022-06-08 10:19] LABS: EOS % 2.3 % (0-4.5); HEMATOCRIT 38.3 % (35.4-49); HEMOGLOBIN 12.6 GM/dL (11.7-16.9); LYMPH % 28.9 % (8-40); NEUT % 55.8 % (42.8-82.8); PLATELET COUNT 237 10^3/uL (134-434); RBC 3.83 M/mm3 (4.00-5.60); RDW 14.3 % (11.9-15.9)
[2022-06-08] MEDS: oxyCODONE HCL 5 MG TABLET PO PRN (11:11)
[2022-06-08 11:22] LABS: ALBUMIN 3.3 g/dl (3.4-5.0); BLOOD UREA NITROGEN 16.5 mg/dL (7-18)
[2022-06-08 11:27] LABS: TOT PROT 6.9 g/dl (6.4-8.2)
[2022-06-08 11:28] LABS: BILIRUBIN,TOTAL 0.8 mg/dL (0.2-1)
[2022-06-08 15:48] VITALS: BP 140/78; PULSE 78; TEMP 98.9
== END 2022-06-08 14:48 | disposition home or self-care (01) | DRG 317 ==
LOC: JER 21:29 → JASUSAT 06-04 03:17 → SUATTDRO 06-04 03:17 → J8W 06-04 03:18 → UNDOADMIN 06-04 03:18 → J8W 06-04 08:43 → JASUSAT 06-04 08:44 → J8W 06-04 09:45
PROVIDERS: ADMIT Orthopaedic Surgery; ATTEND Internal Medicine
PROC: 0J8 Subcutaneous Tissue and Fascia, Division (ICD-10-PCS; 2022-06-04)
PROC: 0JNG0ZZ Release Right Lower Arm Subcutaneous Tissue and Fascia, Open Approach (ICD-10-PCS; principal; 2022-06-04 03:50)
PROC: 0JCG0ZZ Extirpation of Matter from Right Lower Arm Subcutaneous Tissue and Fascia, Open Approach (ICD-10-PCS; 2022-06-07)
PROC: 0JRG07Z Replacement of Right Lower Arm Subcutaneous Tissue and Fascia with Autologous Tissue Substitute, Open Approach (ICD-10-PCS; 2022-06-07)
DX: T79.A11A Traumatic compartment syndrome of right upper extremity, initial encounter (principal); E87.0 Hyperosmolality and hypernatremia; V03.99XA Pedestrian with other conveyance injured in collision with car, pick-up truck or van, unspecified whether traffic or nontraffic accident, initial encounter; Y93.9 Activity, unspecified; Y92.488 Other paved roadways as the place of occurrence of the external cause; Y99.9 Unspecified external cause status; R50.9 Fever, unspecified; E87.5 Hyperkalemia; G56.01 Carpal tunnel syndrome, right upper limb
CPT/HCPCS: 36415; 73070-TC-RT-FY; 73090-TC-RT-FY; 73110-TC-RT-FY; 73130-TC-RT-FY; 80053; 85025; 85610; 87040; 87070; 87205; 88304-TC; 93005; 93010; 94760; 99285-25; C9803-CS; J1644; U0003; U0005

== ENCOUNTER 2022-06-25 10:05 | Emergency (ER) | payer OTHER ==
[2022-06-25 10:11] VITALS: BP 155/78; PULSE 53; RESP 18; TEMP 97.8; BMI 26.6
[2022-06-25] MEDS ORDERED: ACETAMINOPHEN 1000 MG/100 ML BAG IVPB ONE (11:38)
[2022-06-25] MEDS ORDERED: HALOPERIDOL LACTATE 5 MG/ML IM ONE (11:38)
[2022-06-25] MEDS ORDERED: LACTATED RINGERS SOLUTION 1000 ML INFUS.BAG IV ONE (11:38)
[2022-06-25] MEDS ORDERED: HALOPERIDOL LACTATE 5 MG/ML ONE (11:50)
[2022-06-25] MEDS ORDERED: ACETAMINOPHEN INJECTION 100 ML IVPB ONE (11:50)
[2022-06-25 12:26] LABS: BASO % 0.5 % (0-2.0); EOS % 0.5 % (0-4.5); HEMATOCRIT 43.4 % (35.4-49); HEMOGLOBIN 14.7 GM/dL (11.7-16.9); LYMPH % 12.1 % (8-40); MCH 33.9 pg (25.7-33.7); MCHC 33.7 g/dl (32.0-35.9); MEAN CELL VOLUME 100.5 fl (80-96); MEAN PLT VOLUME 9.1 fl (7.5-11.1); MONO % 2.6 % (3.8-10.2); NEUT % 84.3 % (42.8-82.8); PLATELET COUNT 298 10^3/uL (134-434); RBC 4.32 M/mm3 (4.00-5.60); RDW 15.1 % (11.9-15.9); WHITE BLOOD COUNT 10.9 K/mm3 (4.0-10.0)
[2022-06-25 12:33] LABS: INR 0.92 (0.83-1.09); PROTHROMBIN TIME (PATIENT) 10.6 SEC (9.7-13.0)
[2022-06-25 12:36] LABS: ACTIVATED PTT 27.9 SECONDS (25.2-36.5)
[2022-06-25 12:39] LABS: BLOOD UREA NITROGEN 13.5 mg/dL (7-18); CALCIUM 10.2 mg/dL (8.5-10.1)
[2022-06-25 12:40] LABS: ALBUMIN 4.2 g/dl (3.4-5.0)
[2022-06-25 12:44] LABS: BILIRUBIN,TOTAL 0.7 mg/dL (0.2-1); CREATININE 1.2 mg/dL (0.55-1.3); TOT PROT 8.4 g/dl (6.4-8.2)
[2022-06-25] MEDS ORDERED: ONDANSETRON 4 MG/2 ML VIAL IVPUSH ONE (13:31)
[2022-06-25] MEDS ORDERED: ONDANSETRON 4 MG/2 ML VIAL ONE (13:55)
== END 2022-06-25 16:24 | disposition home or self-care (01) ==
LOC: JER 10:05
PROC: 3E033NZ Introduction of Analgesics, Hypnotics, Sedatives into Peripheral Vein, Percutaneous Approach (ICD-10-PCS; principal; 2022-06-25)
PROC: 3E023NZ Introduction of Analgesics, Hypnotics, Sedatives into Muscle, Percutaneous Approach (ICD-10-PCS; 2022-06-25)
PROC: 3E033GC Introduction of Other Therapeutic Substance into Peripheral Vein, Percutaneous Approach (ICD-10-PCS; 2022-06-25)
DX: R11.10 Vomiting, unspecified (principal)
CPT/HCPCS: 36415; 80053; 83690; 85025; 85610; 85730; 86850; 86900; 86901; 93005; 93010; 99284-25

== ENCOUNTER 2022-08-01 04:27 | Day surgery (SDC) | payer OTHER ==
[2022-07-28 14:30] VITALS: BMI 28.1
[~2022-08-01 04:27] MED LIST: DEXAMETHASONE SOD PHOSPHATE 10 MG/1 ML VIAL IM ONE; IOHEXOL 180 MG/1 ML ML IJ ONE
[2022-08-01 08:01] VITALS: RESP 20
[2022-08-01] MEDS ORDERED: LIDOCAINE HCL 1% PRESERVATIVE FREE - 30ML VIAL IJ ONE (08:30)
[2022-08-01] MEDS ORDERED: IOHEXOL 180 MG/1 ML ML IJ ONE (08:32)
[2022-08-01] MEDS ORDERED: DEXAMETHASONE SOD PHOSPHATE 10 MG/1 ML VIAL IM ONE (08:36)
[2022-08-01 08:52] VITALS: BP 130/80; PULSE 60; TEMP 99.1
== END 2022-08-01 09:15 | disposition home or self-care (01) ==
LOC: JASU-SURG 04:27
PROVIDERS: ATTEND Pain Medicine Pain Medicine
PROC: 3E0R33Z Introduction of Anti-inflammatory into Spinal Canal, Percutaneous Approach (ICD-10-PCS; 2022-08-01)
PROC: 3E0R3BZ Introduction of Anesthetic Agent into Spinal Canal, Percutaneous Approach (ICD-10-PCS; principal; 2022-08-01 09:00)
DX: M54.16 Radiculopathy, lumbar region (principal)
CPT/HCPCS: 76000-TC-FY; J1100

== ENCOUNTER 2022-09-05 04:50 | Day surgery (SDC) | payer OTHER ==
[2022-09-05] MEDS ORDERED: LIDOCAINE HCL/PF 1% SDV 5ML VIAL ONE (07:19)
[2022-09-05] MEDS ORDERED: DEXAMETHASONE SOD PHOSPHATE 10 MG/1 ML VIAL ONE (07:19)
[2022-09-05] MEDS ORDERED: LIDOCAINE HCL 1% PRESERVATIVE FREE - 30ML VIAL IJ ONE ×2 (11:01)
[2022-09-05] MEDS ORDERED: IOHEXOL 180 MG/1 ML ML IJ ONE (11:01)
[2022-09-05] MEDS ORDERED: DEXAMETHASONE SOD PHOSPHATE 10 MG/1 ML VIAL IVPUSH ONE ×2 (11:02)
[2022-09-05 11:29] VITALS: BP 134/83; PULSE 54; RESP 18; TEMP 98.6
== END 2022-09-05 11:30 | disposition home or self-care (01) ==
LOC: JASU-SURG 04:50
PROVIDERS: ATTEND Pain Medicine Pain Medicine
PROC: 3E0R33Z Introduction of Anti-inflammatory into Spinal Canal, Percutaneous Approach (ICD-10-PCS; 2022-09-05)
PROC: 3E0R3BZ Introduction of Anesthetic Agent into Spinal Canal, Percutaneous Approach (ICD-10-PCS; principal; 2022-09-05 10:30)
DX: M54.16 Radiculopathy, lumbar region (principal)
CPT/HCPCS: 76000-TC-FY; J1100

== ENCOUNTER 2023-01-17 14:25 | Emergency (ER) | payer OTHER ==
[2023-01-17 14:47] VITALS: BP 117/70; PULSE 79; RESP 16; TEMP 98; BMI 28.1
[2023-01-17] MEDS ORDERED: KETOROLAC TROMETHAMINE 30 MG/1 ML VIAL IM ONE (16:29)
[2023-01-17] MEDS ORDERED: KETOROLAC TROMETHAMINE 30 MG/1 ML VIAL ONE (16:42)
== END 2023-01-17 18:07 | disposition home or self-care (01) ==
LOC: JER 14:25 → JERFT 14:25
PROC: 3E0233Z Introduction of Anti-inflammatory into Muscle, Percutaneous Approach (ICD-10-PCS; principal; 2023-01-17)
DX: S13.4XXA Sprain of ligaments of cervical spine, initial encounter (principal); M54.2 Cervicalgia; M54.6 Pain in thoracic spine; M25.511 Pain in right shoulder; M79.604 Pain in right leg; M79.605 Pain in left leg; V13.4XXA Pedal cycle driver injured in collision with car, pick-up truck or van in traffic accident, initial encounter
CPT/HCPCS: 72040-TC; 72100-TC-FY; 73030-TC-RT-FY; 73560-TC-LT-FY; 73560-TC-RT-FY; 73590-TC-LT-FY; 73590-TC-RT-FY; 99285-25

== ENCOUNTER 2023-01-30 04:03 | Day surgery (SDC) | payer OTHER ==
[2023-01-29 10:58] VITALS: BMI 28.1
[2023-01-30] MEDS ORDERED: DEXAMETHASONE SOD PHOSPHATE 10 MG/1 ML VIAL ONE ×2 (07:25→08:43)
[2023-01-30] MEDS ORDERED: LIDOCAINE HCL/PF 1% SDV 5ML VIAL ONE (07:25)
[2023-01-30] MEDS ORDERED: LIDOCAINE 1% P/F 10 MG/ML VIAL INF ONE ×2 (08:22)
[2023-01-30] MEDS ORDERED: IOHEXOL 180 MG/1 ML ML IJ ONE (08:22)
[2023-01-30] MEDS ORDERED: DEXAMETHASONE SOD PHOSPHATE 10 MG/1 ML VIAL IVPUSH ONE (08:23)
[2023-01-30 09:24] VITALS: BP 134/92; PULSE 55; RESP 16; TEMP 98.7
[2023-01-30] MEDS ORDERED: ACETAMINOPHEN 500 MG TABLET (FP) PO PRN (14:23)
== END 2023-01-30 08:55 | disposition home or self-care (01) ==
LOC: JASU-SURG 04:03
PROVIDERS: ATTEND Pain Medicine Pain Medicine
PROC: 3E0R3BZ Introduction of Anesthetic Agent into Spinal Canal, Percutaneous Approach (ICD-10-PCS; 2023-01-30)
PROC: 3E0R33Z Introduction of Anti-inflammatory into Spinal Canal, Percutaneous Approach (ICD-10-PCS; principal; 2023-01-30 08:00)
DX: M47.812 Spondylosis without myelopathy or radiculopathy, cervical region (principal)
CPT/HCPCS: 76000-TC-FY; J1100

== ENCOUNTER 2023-02-22 09:10 | Emergency (ER) | payer OTHER ==
[2023-02-22 09:18] VITALS: RESP 17; TEMP 98.7; BMI 27.3
[2023-02-22] MEDS ORDERED: FAMOTIDINE 20 MG/50 ML IVPB 20 MG/50 ML MG IVPB ONE ×2 (09:41→10:00)
[2023-02-22] MEDS ORDERED: LACTATED RINGERS SOLUTION 1000 ML INFUS.BAG IV ONE (09:41)
[2023-02-22] MEDS ORDERED: HALOPERIDOL DECANOATE 500 MG/5ML MDV IM ONE (09:44)
[2023-02-22] MEDS ORDERED: HALOPERIDOL LACTATE 5 MG/ML IM ONE (09:59)
[2023-02-22 10:42] LABS: POTASSIUM 5.3 mmol/L (3.5-5.1)
[2023-02-22 10:44] LABS: ALBUMIN 3.9 g/dl (3.4-5.0); CALCIUM 9.8 mg/dL (8.5-10.1)
[2023-02-22 10:45] LABS: BLOOD UREA NITROGEN 17.3 mg/dL (7-18); MAGNESIUM 2.1 mg/dL (1.8-2.4)
[2023-02-22 10:49] LABS: BILIRUBIN,TOTAL 0.7 mg/dL (0.2-1); TOT PROT 7.9 g/dl (6.4-8.2)
[2023-02-22] MEDS ORDERED: ACETAMINOPHEN 1000 MG/100 ML BAG IVPB ONE (11:41)
[2023-02-22] MEDS ORDERED: ACETAMINOPHEN INJECTION 100 ML IVPB ONE (11:48)
[2023-02-22 12:30] LABS: BASO % 0.4 % (0-2.0); EOS % 0.2 % (0-4.5); HEMATOCRIT 40.6 % (35.4-49); HEMOGLOBIN 13.8 GM/dL (11.7-16.9); LYMPH % 9.6 % (8-40); MCH 33.5 pg (25.7-33.7); MCHC 34.1 g/dl (32.0-35.9); MEAN CELL VOLUME 98.1 fl (80-96); MEAN PLT VOLUME 9.9 fl (7.5-11.1); MONO % 5.3 % (3.8-10.2); NEUT % 84.5 % (42.8-82.8); PLATELET COUNT 175 10^3/uL (134-434); RBC 4.14 M/mm3 (4.00-5.60); RDW 14.4 % (11.9-15.9); WHITE BLOOD COUNT 9.3 K/mm3 (4.0-10.0)
[2023-02-22] MEDS ORDERED: SODIUM CHLORIDE 0.9% 500 ML INFUS.BAG IV ONE (12:49)
[2023-02-22] MEDS ORDERED: ONDANSETRON 4 MG/2 ML VIAL IVPUSH ONE (12:49)
[2023-02-22 13:04] LABS: CALCIUM 9.2 mg/dL (8.5-10.1)
[2023-02-22] MEDS ORDERED: ONDANSETRON 4 MG/2 ML VIAL ONE (13:06)
[2023-02-22 13:08] LABS: CREATININE 0.9 mg/dL (0.55-1.3)
[2023-02-22 15:48] VITALS: BP 136/81; PULSE 78
== END 2023-02-22 15:50 | disposition home or self-care (01) ==
LOC: JER 09:10
PROC: 3E033GC Introduction of Other Therapeutic Substance into Peripheral Vein, Percutaneous Approach (ICD-10-PCS; principal; 2023-02-22)
PROC: 3E033GC Introduction of Other Therapeutic Substance into Peripheral Vein, Percutaneous Approach (ICD-10-PCS; 2023-02-22)
PROC: 3E033NZ Introduction of Analgesics, Hypnotics, Sedatives into Peripheral Vein, Percutaneous Approach (ICD-10-PCS; 2023-02-22)
PROC: 3E023GC Introduction of Other Therapeutic Substance into Muscle, Percutaneous Approach (ICD-10-PCS; 2023-02-22)
DX: R10.13 Epigastric pain (principal); F12.188 Cannabis abuse with other cannabis-induced disorder; R11.14 Bilious vomiting
CPT/HCPCS: 36415; 80048; 80053; 83690; 83735; 85025; 93005; 93010; 99284-25

== ENCOUNTER 2023-09-26 15:01 | Emergency (ER) | payer OTHER ==
[2023-09-26 15:17] VITALS: BP 129/77; PULSE 71; RESP 18; TEMP 98.7; BMI 28.1
[2023-09-26] MEDS ORDERED: MAG HYDROX/AL HYDROX/SIMETH 30 ML UNIT-DOSE CUP PO ONE (16:44)
[2023-09-26] MEDS ORDERED: FAMOTIDINE 20 MG/50 ML IVPB 20 MG/50 ML MG IVPB ONE ×2 (16:44→17:14)
[2023-09-26] MEDS ORDERED: SUCRALFATE 1 GM TABLET (FP) PO ONE (16:45)
[2023-09-26] MEDS ORDERED: SUCRALFATE 1 GM TABLET (FP) ONE (17:14)
[2023-09-26] MEDS ORDERED: MAG HYDROX/AL HYDROX/SIMETH 30 ML UNIT-DOSE CUP ONE (17:14)
[2023-09-26 17:36] LABS: BASO % 0.7 % (0-2.0); EOS % 3.8 % (0-4.5); HEMATOCRIT 40.6 % (35.4-49); HEMOGLOBIN 13.6 GM/dL (11.7-16.9); LYMPH % 39.3 % (8-40); MCH 33.2 pg (25.7-33.7); MCHC 33.5 g/dl (32.0-35.9); MEAN PLT VOLUME 7.8 fl (7.5-11.1); MONO % 8.1 % (3.8-10.2); NEUT % 48.1 % (42.8-82.8); PLATELET COUNT 229 10^3/uL (134-434); RDW 14.8 % (11.9-15.9); WHITE BLOOD COUNT 6.4 K/mm3 (4.0-10.0)
[2023-09-26] MEDS ORDERED: ACETAMINOPHEN 325 MG TABLET (FP) PO ONE (17:46)
[2023-09-26 18:04] LABS: ALBUMIN 3.6 g/dl (3.4-5.0); CALCIUM 9.3 mg/dL (8.5-10.1)
[2023-09-26 18:07] LABS: CREATININE 1.2 mg/dL (0.55-1.3)
[2023-09-26 18:09] LABS: BILIRUBIN,TOTAL 0.3 mg/dL (0.2-1); TOT PROT 7.4 g/dl (6.4-8.2)
== END 2023-09-26 18:37 | disposition home or self-care (01) ==
LOC: JER 15:01
PROC: 3E033GC Introduction of Other Therapeutic Substance into Peripheral Vein, Percutaneous Approach (ICD-10-PCS; principal; 2023-09-26)
DX: R07.89 Other chest pain (principal); K21.9 Gastro-esophageal reflux disease without esophagitis
CPT/HCPCS: 36415; 71046-TC-FY; 80053; 83690; 84484; 85025; 93005; 93010; 99285-25

== ENCOUNTER 2024-06-19 04:47 | Day surgery (SDC) | payer OTHER ==
[2024-06-16 14:44] VITALS: BMI 26.6
[2024-06-19] MEDS ORDERED: DEXAMETHASONE SOD PHOSPHATE 10 MG/1 ML VIAL ONE (07:48)
[2024-06-19] MEDS ORDERED: LIDOCAINE HCL/PF 2% SDV 5ML VIAL ONE (07:48)
[2024-06-19 11:51] VITALS: RESP 18
[2024-06-19] MEDS: LIDOCAINE HCL 1% PRESERVATIVE FREE - 30ML VIAL IJ ONE (12:31)
[2024-06-19] MEDS: DEXAMETHASONE SOD PHOSPHATE 20 MG/5 ML VIAL IM ONE (12:32)
[2024-06-19] MEDS: IOHEXOL 180 MG/1 ML ML IJ ONE (12:32)
[2024-06-19] MEDS ORDERED: ACETAMINOPHEN 500 MG TABLET (FP) PO PRN (13:01)
[2024-06-19 13:16] VITALS: BP 138/93; PULSE 60; TEMP 97.7
== END 2024-06-19 12:55 | disposition home or self-care (01) ==
LOC: JASU-SURG 04:47
PROVIDERS: ATTEND Pain Medicine Pain Medicine
PROC: 3E0R33Z Introduction of Anti-inflammatory into Spinal Canal, Percutaneous Approach (ICD-10-PCS; principal; 2024-06-19 12:30)
DX: M54.12 Radiculopathy, cervical region (principal)
CPT/HCPCS: 76000-TC-FY; J1100

== ENCOUNTER 2024-07-08 13:24 | Emergency (ER) | payer OTHER ==
[2024-07-08 13:46] VITALS: TEMP 97.6; BMI 27.2
[2024-07-08] MEDS: ONDANSETRON 4 MG/2 ML VIAL IVPUSH ONE (14:15)
[2024-07-08] MEDS: FAMOTIDINE 20 MG/50 ML IVPB 20 MG/50 ML MG IVPB ONE (14:20)
[2024-07-08] MEDS ORDERED: ONDANSETRON 4 MG/2 ML VIAL ONE (14:21)
[2024-07-08] MEDS ORDERED: ACETAMINOPHEN INJECTION 100 ML ONE (14:21)
[2024-07-08] MEDS ORDERED: MAG HYDROX/AL HYDROX/SIMETH 30 ML UNIT-DOSE CUP ONE (14:22)
[2024-07-08] MEDS ORDERED: FAMOTIDINE 10 MG/ML VIAL IVPB ONE (14:22)
[2024-07-08] MEDS: ACETAMINOPHEN 1000 MG/100 ML BAG IVPB ONE (14:56)
[2024-07-08] MEDS: SODIUM CHLORIDE 1,000 ML IV STA (14:56)
[2024-07-08] MEDS: MAG HYDROX/AL HYDROX/SIMETH 30 ML UNIT-DOSE CUP PO ONE (14:56)
[2024-07-08 15:02] LABS: BASO % 0.3 % (0-2.0); EOS % 2.5 % (0-4.5); HEMATOCRIT 41.4 % (35.4-49); LYMPH % 10.6 % (8-40); MCH 33.2 pg (25.7-33.7); MCHC 33.7 g/dl (32.0-35.9); MEAN CELL VOLUME 98.4 fl (80-96); MEAN PLT VOLUME 8.1 fl (7.5-11.1); MONO % 4.4 % (3.8-10.2); NEUT % 82.2 % (42.8-82.8); PLATELET COUNT 244 10^3/uL (134-434); RBC 4.21 M/mm3 (4.00-5.60); RDW 15.3 % (11.9-15.9); WHITE BLOOD COUNT 9.1 K/mm3 (4.0-10.0)
[2024-07-08 15:58] LABS: CHLORIDE 109 mmol/L (98-107); SODIUM 138 mmol/L (136-145)
[2024-07-08 16:00] LABS: CALCIUM 9.9 mg/dL (8.5-10.1)
[2024-07-08 16:01] LABS: ALBUMIN 3.9 g/dl (3.4-5.0); BLOOD UREA NITROGEN 16.4 mg/dL (7-18); CO2 22 mmol/L (21-32); GLUCOSE,RANDOM 111 mg/dL (74-106)
[2024-07-08 16:03] LABS: ANION GAP 6 mmol/L (4-13); POTASSIUM 6.3 mmol/L (3.5-5.1); SGPT/ALT 28 U/L (13-61)
[2024-07-08] MEDS ORDERED: METOCLOPRAMIDE HCL INJECTION 10 MG/2 ML VIAL ONE (16:03)
[2024-07-08 16:04] LABS: CREATININE 1.2 mg/dL (0.55-1.3); SGOT/AST 48 U/L (15-37)
[2024-07-08 16:05] LABS: BILIRUBIN,TOTAL 0.7 mg/dL (0.2-1)
[2024-07-08] MEDS: METOCLOPRAMIDE HCL INJECTION 10 MG/2 ML VIAL IVPUSH ONE (16:05)
[2024-07-08 16:06] LABS: ALK PHOS 70 U/L (45-117); TOT PROT 7.9 g/dl (6.4-8.2)
[2024-07-08] MEDS: SODIUM CHLORIDE 0.9% 500 ML INFUS.BAG IV ONE (16:10)
[2024-07-08] MEDS ORDERED: HALOPERIDOL LACTATE 5 MG/ML ONE (17:35)
[2024-07-08] MEDS: HALOPERIDOL LACTATE 5 MG/ML IVPUSH ONE (17:44)
[2024-07-08 19:55] VITALS: BP 143/80; PULSE 50; RESP 18
[2024-07-08 20:15] LABS: CALCIUM 9.3 mg/dL (8.5-10.1)
[2024-07-08 20:16] LABS: BLOOD UREA NITROGEN 13.3 mg/dL (7-18)
[2024-07-08 20:20] LABS: CREATININE 1.1 mg/dL (0.55-1.3)
== END 2024-07-08 20:45 | disposition home or self-care (01) ==
LOC: JER 13:24
PROC: 3E033GC Introduction of Other Therapeutic Substance into Peripheral Vein, Percutaneous Approach (ICD-10-PCS; principal; 2024-07-08)
PROC: 3E033NZ Introduction of Analgesics, Hypnotics, Sedatives into Peripheral Vein, Percutaneous Approach (ICD-10-PCS; 2024-07-08)
PROC: 3E033GC Introduction of Other Therapeutic Substance into Peripheral Vein, Percutaneous Approach (ICD-10-PCS; 2024-07-08)
PROC: 3E033GC Introduction of Other Therapeutic Substance into Peripheral Vein, Percutaneous Approach (ICD-10-PCS; 2024-07-08)
PROC: 3E033GC Introduction of Other Therapeutic Substance into Peripheral Vein, Percutaneous Approach (ICD-10-PCS; 2024-07-08)
DX: R11.2 Nausea with vomiting, unspecified (principal); R10.84 Generalized abdominal pain
CPT/HCPCS: 36415; 74177-TC; 80048; 80053; 83690; 85025; 93005; 93010; 99285-25; J0131; Q9967

== ENCOUNTER 2024-07-10 08:13 | Emergency (ER) | payer OTHER ==
[2024-07-10 08:25] VITALS: BP 151/90; PULSE 68; RESP 22; TEMP 97.9; BMI 27.3
[2024-07-10] MEDS ORDERED: HALOPERIDOL LACTATE 5 MG/ML ONE (09:06)
[2024-07-10] MEDS: HALOPERIDOL LACTATE 5 MG/ML IM ONE (09:10)
[2024-07-10] MEDS: LACTATED RINGERS SOLUTION 1000 ML INFUS.BAG IV ONE (09:11)
[2024-07-10] MEDS: ONDANSETRON 4 MG/2 ML VIAL IVPB ONE (09:11)
== END 2024-07-10 11:40 | disposition home or self-care (01) ==
LOC: JER 08:13
PROC: 3E023GC Introduction of Other Therapeutic Substance into Muscle, Percutaneous Approach (ICD-10-PCS; principal; 2024-07-10)
DX: F12.188 Cannabis abuse with other cannabis-induced disorder (principal); R11.2 Nausea with vomiting, unspecified
CPT/HCPCS: 99284-25

== ENCOUNTER 2024-10-10 04:34 | Day surgery (SDC) | payer OTHER ==
[2024-10-03 15:06] VITALS: BMI 26.6
[2024-10-10] MEDS ORDERED: ACETAMINOPHEN 500 MG TABLET (FP) PO PRN (09:02)
[2024-10-10 14:35] VITALS: RESP 18
[2024-10-10] MEDS: LIDOCAINE HCL 1% PRESERVATIVE FREE - 30ML VIAL IJ ONE (15:00)
[2024-10-10] MEDS: DEXAMETHASONE SOD PHOSPHATE 10 MG/1 ML VIAL IVPUSH ONE (15:00)
[2024-10-10] MEDS: BUPIVACAINE HCL/PF 0.5% (5 MG/ML) 30 ML VIAL IJ ONE (15:00)
[2024-10-10 15:50] VITALS: BP 127/78; PULSE 58; TEMP 97.7
== END 2024-10-10 15:30 | disposition home or self-care (01) ==
LOC: JASU-SURG 04:34
PROVIDERS: ATTEND Pain Medicine Pain Medicine
PROC: 3E0U3BZ Introduction of Anesthetic Agent into Joints, Percutaneous Approach (ICD-10-PCS; 2024-10-10)
PROC: 3E0U33Z Introduction of Anti-inflammatory into Joints, Percutaneous Approach (ICD-10-PCS; principal; 2024-10-10 15:30)
DX: M16.11 Unilateral primary osteoarthritis, right hip (principal)
CPT/HCPCS: 76000-TC-FY; J1100

== ENCOUNTER 2024-12-29 05:57 | Day surgery (SDC) | payer OTHER ==
[2024-12-24 10:08] VITALS: BMI 26.6
[2024-12-29] MEDS ORDERED: BUPIVACAINE HCL/EPINEPHRINE/PF 30 ML VIAL IJ ONE (07:24)
[2024-12-29] MEDS ORDERED: MIDAZOLAM HCL 2 MG/2 ML SINGLE DOSE VIAL ONE ×2 (07:47→09:04)
[2024-12-29] MEDS ORDERED: ROPIVACAINE HCL/PF 100 MG/20 ML VIAL ONE (07:48)
[2024-12-29] MEDS ORDERED: FENTANYL CITRATE/PF 50 MCG/ML VIAL ONE (07:48)
[2024-12-29] MEDS ORDERED: SUCCINYLCHOLINE CHLORIDE 200 MG/10 ML SYRINGE ONE (08:02)
[2024-12-29] MEDS ORDERED: PROPOFOL 20 ML ONE (08:02)
[2024-12-29] MEDS ORDERED: oxyCODONE HCL 5 MG TABLET PO PRN ×2 (10:06)
[2024-12-29] MEDS: KETOROLAC TROMETHAMINE 30 MG/1 ML VIAL IVPUSH PRN (10:15)
[2024-12-29] MEDS ORDERED: KETOROLAC TROMETHAMINE 30 MG/1 ML VIAL ONE (10:17)
[2024-12-29] MEDS ORDERED: ACETAMINOPHEN INJECTION 100 ML ONE (10:18)
[2024-12-29] MEDS: ACETAMINOPHEN 1000 MG/100 ML BAG IVPB PRN (10:20)
[2024-12-29 10:58] VITALS: RESP 18; TEMP 97.3
[2024-12-29 11:49] VITALS: BP 128/73; PULSE 59
== END 2024-12-29 11:55 | disposition home or self-care (01) ==
LOC: FASU 05:57
PROVIDERS: ATTEND Orthopaedic Surgery
PROC: 0RNJ4ZZ Release Right Shoulder Joint, Percutaneous Endoscopic Approach (ICD-10-PCS; principal; 2024-12-29 08:31)
PROC: 0PB94ZZ Excision of Right Clavicle, Percutaneous Endoscopic Approach (ICD-10-PCS; 2024-12-29 08:31)
PROC: 0LS30ZZ Reposition Right Upper Arm Tendon, Open Approach (ICD-10-PCS; 2024-12-29 08:31)
DX: S46.011A Strain of muscle(s) and tendon(s) of the rotator cuff of right shoulder, initial encounter (principal); M75.21 Bicipital tendinitis, right shoulder; S43.431A Superior glenoid labrum lesion of right shoulder, initial encounter; M65.811 Other synovitis and tenosynovitis, right shoulder; M75.51 Bursitis of right shoulder; M75.01 Adhesive capsulitis of right shoulder; M19.011 Primary osteoarthritis, right shoulder; X58.XXXA Exposure to other specified factors, initial encounter; Y93.9 Activity, unspecified; Y92.9 Unspecified place or not applicable
CPT/HCPCS: 88304-TC; 94760; C1713; J0131